=== PATIENT | male | born 1985 | race Caucasian/White ===

== ENCOUNTER 2016-11-23 13:52 | Emergency (ER) | payer OTHER ==
--- NOTE | 2016-11-23 16:46 | XRay Report ---
FINAL REPORT PROCEDURE: XR HAND 3 LT TECHNIQUE: Left hand, three views HISTORY: Injury last night COMPARISON: No prior studies are available for comparison. FINDINGS: There is an acute angulated and displaced fracture of the distal 5th metacarpal shaft. Distal fracture fragment is displaced volarly by at least half a bone width. No evidence of joint dislocation. No radiopaque foreign body. Overlying soft tissue swelling. IMPRESSION: Distal 5th metacarpal shaft fracture
--- NOTE | 2016-11-23 18:34 | Emergency Department Report ---
HPI - General Chief Complaint: Extremity Injury, Upper Time Seen by Provider: 11/23/16 17:34 - HPI HPI: 31-year-old male presents today with left hand pain post punching a wall last night. Patient describes the pain as 7 out of 10 throbbing pain that comes and goes. Positive for swelling. Positive for a small laceration without active bleeding. Denies taking any medication for pain relief. Denies numbness, weakness, paresthesias. Denies fever, chills, nausea, vomiting, chest pain, shortness of breath, abdominal pain. Tetanus status unknown. ED Past Medical Hx - Past Medical History Previous Medical History?: No - Surgical History Past Surgical History?: Yes Additional Surgical History: Compound FX right leg - Social History Smoking Status: Never Smoker Substance Use Type: Alcohol - Medications Home Medications: Home Medications Medication Instructions Recorded Confirmed Last Taken Type traMADol [Ultram 50 MG tab] 50 mg PO Q6HR PRN #20 tablet 11/23/16 Unknown Rx ED Review of Systems ROS: Stated complaint: SWOLLEN LEFT HAND Other details as noted in HPI Constitutional: denies: chills, fever, malaise Eyes: denies: eye pain ENT: denies: ear pain, throat pain, congestion Respiratory: denies: cough, shortness of breath, wheezing Cardiovascular: denies: chest pain, palpitations Endocrine: no symptoms reported Gastrointestinal: denies: abdominal pain, nausea, vomiting Musculoskeletal: joint swelling, arthralgia Neurological: denies: headache, weakness, numbness, paresthesias Physical Exam - Physical Exam Vital Signs: Vital Signs 11/23/16 13:56 Temperature 98.0 F Pulse Rate 88 Respiratory 16 Rate Blood Pressure 127/82 O2 Sat by Pulse 98 Oximetry Physical Exam: GENERAL: The patient is well-developed and well-nourished. Patient is in NAD. HEAD: Normocephalic. Atraumatic. CHEST/LUNGS: Clear to auscultation throughout. HEART/CARDIOVASCULAR: Regular rate and rhythm. No murmurs, rubs or gallops. ABDOMEN: Abdomen is soft, nontender. Bowel sounds normoactive. No guarding or rebound tenderness. LEFT HAND: Positive for edema noted over the dorsal ulnar aspect left hand. Limited digit range of motion due to pain. Full wrist range of motion. 0.5 cm superficial laceration noted over the edema. No active bleeding. Normal sensation. 2 point discrimination is intact. Peripheral pulses intact. Capillary refill less than 2 seconds. NEURO: Alert and oriented x 3. Normal gait. ED Course Vital Signs 11/23/16 13:56 Temperature 98.0 F Pulse Rate 88 Respiratory 16 Rate Blood Pressure 127/82 O2 Sat by Pulse 98 Oximetry ED Medical Decision Making - Lab Data Vital Signs 11/23/16 13:56 Temperature 98.0 F Pulse Rate 88 Respiratory 16 Rate Blood Pressure 127/82 O2 Sat by Pulse 98 Oximetry - Radiology Data Radiology results: report reviewed Left hand x-ray: There is an acute angulated and displaced fracture of the distal fifth metacarpal shaft. Distal fracture fragment is displaced volarly by at least half a bottle with. No evidence of joint dislocation. No radiopaque foreign body. Overlying soft tissue swelling. - Medical Decision Making 31-year-old male presents today with left hand pain post punching a wall last night. His x-ray results reveal a distal fifth metacarpal shaft fracture. As been splinted. A referral for orthopedic has been provided. Patient is in no acute distress at this time. He will be discharged home and is encouraged to follow up with a primary care provider. He will be sent home on Tramadol and is encouraged to return to the emergency room for any worsening symptoms. Critical care attestation.: If time is entered above; I have spent that time in minutes in the direct care of this critically ill patient, excluding procedure time. ED Disposition Clinical Impression: Fracture of fifth metacarpal bone Qualifiers: Encounter type: initial encounter Fracture type: closed Metacarpal location: shaft Fracture alignment: displaced Laterality: left Qualified Code(s): S62.327A - Displaced fracture of shaft of fifth metacarpal bone, left hand, initial encounter for closed fracture Disposition: DISCHARGED TO HOME OR SELFCARE Is pt being admited?: No Does the pt Need Aspirin: No Condition: Stable Instructions: Hand Fracture (ED) Additional Instructions: Follow-up with primary care provider. Return to emergency department if symptoms worsen. Prescriptions: traMADol [Ultram 50 MG tab] 50 mg PO Q6HR PRN #20 tablet PRN Reason: Pain Referrals: PRIMARY CARE, [Primary Care Provider] - 3-5 Days PASHA PARRA MD [Staff Physician] - 3-5 Days Forms: Work/School Release Form(ED) Time of Disposition: 18:38
[2016-11-23] MEDS ORDERED: BOOSTRIX IM ONE (18:35)
[2016-11-23 19:00] VITALS: BP 134/86
== END 2016-11-23 19:50 | disposition home or self-care (01) ==
LOC: ED 13:52
DX: S62.327A Displaced fracture of shaft of fifth metacarpal bone, left hand, initial encounter for closed fracture (principal); S61.412A Laceration without foreign body of left hand, initial encounter; W22.01XA Walked into wall, initial encounter; Y93.9 Activity, unspecified; Y92.9 Unspecified place or not applicable; Y99.9 Unspecified external cause status
CPT/HCPCS: 90471; 90715